=== PATIENT | male | born 1945 | race Caucasian/White ===

== ENCOUNTER 2019-09-24 08:31 | Observation (INO) | payer MEDICARE, SELFPAY ==
[2019-09-07 10:19] VITALS: BP 140/80; PULSE 54; RESP 16; TEMP 36.8; O2SAT 96; BMI 25.4
--- NOTE | 2019-09-07 10:41 | SDCEKG_ITS ---
Test Reason : Blood Pressure : / mmHG Vent. Rate : 045 BPM Atrial Rate : 045 BPM P-R Int : 182 ms QRS Dur : 096 ms QT Int : 470 ms P-R-T Axes : 060 -25 045 degrees QTc Int : 406 ms Marked sinus bradycardia Abnormal ECG Confirmed by CHELLE ENGLISH, LISA ([id number]), digital editor LUIS MONROY ([id number]) on 09/10/2019 9:46:56 AM Referred By: Ricci Hauser Confirmed By:LISA CORBETT MD
[2019-09-07 11:04] LABS: Hematocrit 40.3 % (40-54); Mean Corp Hgb Conc 34.7 g/dL (32-36); Mean Corpuscular Hgb 32.2 pg (27.0-32.0); Mean Corpuscular Volume 92.6 fL (80-94); Mean Platelet Vol. 9.2 fl (6.2-12.0); Platelet Count 200 K/mm3 (150-450); RBC Distribution Width CV 13.3 % (11.6-14.6); RBC Distribution Width SD 45.8 fl (35.1-43.9); Red Blood Count 4.35 M/mm3 (4.6-6.2); White Blood Count 5.9 K/mm3 (4.4-11.0)
[2019-09-07 11:27] LABS: Anion Gap 5 (5-15); BUN 24 mg/dL (7-18); BUN/Creat Ratio 25.1 RATIO (10-20); Calcium,Total 9.3 mg/dL (8.5-10.1); Chloride 105 mmol/L (98-107); Creatinine, Serum 0.96 mg/dL (0.70-1.30); EST Glomerular Filtration Rate 82 mL/min (>60); Est Glom Filt Rate - Afr Amer 99 mL/min (>60); Estimated Creatinine Clearance 64.07 ml/min; Glucose 101 mg/dL (74-106); Potassium 3.8 mmol/L (3.5-5.1); Sodium Level 140 mmol/L (136-145)
[2019-09-24] VITALS (13 sets, daily range): BP systolic 112–150; BP diastolic 61–83; PULSE 57–87; RESP 15–18; TEMP 36.3–36.9; O2SAT 96–100; BMI 24.6
[2019-09-24] MEDS: Acetaminophen 500 MG Tablet 1000 MG PO ×3 (07:42→21:20)
[2019-09-24] MEDS: Gabapentin 600 MG Tablet PO (07:43)
[2019-09-24] MEDS: Lactated Ringers 1,000 ML 999 ML IV (07:44)
--- NOTE | 2019-09-24 07:55 | HIP_PTH ---
PATIENT: PATRICK CAMARENA LOC: MS3 U#:[id number] AGE/SX: 74/M ROOM: PA323 RE09/24/[address]: Dr. Ricci Hauser DO : 1945 BED: 1 DIS: 09/25/2019 SPEC #: [id number] RECD: 09/24/19 10:19 STATUS: DELMI RECecilio #: [id number] JOSE C: 09/24/19 07:[address]: Ricci Hauser DEPT: SURGICAL PATHOLOGY RECD BY: Phillip Natarajan ENTERED: 09/24/19 10:48 SP TYPE: TOTAL HIP OTHR DR: Dr. Tere Martinez, Tissues: Hip, NOS Procedures: Decalcification bone/plaque Surgery Specimen Level IV HEADER OPERATION: Total hip replacement PRE-OP DIAGNOSIS: Unilateral primary osteoarthritis left hip TISSUE SUBMITTED: Bone and tissue left hip MICROSCOPIC DIAGNOSIS Bone and soft tissue of left hip, total hip resection: Severe degenerative joint disease. AM:yefri 09/27/19 MICROSCOPIC DESCRIPTION Slides are reviewed. GROSS DESCRIPTION Received is one container labeled with the patient's name and designated bone and soft tissue hip, left. The specimen consists of a senior femoral head with portion of femoral neck. The femoral head measures 5.5 x 5 x 4.5 cm and the femoral neck measures up to 2 cm in length. The articular surface displays prominent osteophyte formation, eburnation and bone erosion. Also present in the specimen container are multiple irregular fragments of bone reamings and pink-yellow soft tissue measuring in aggregate 12 x 11 x 3 cm. Advertising Copy Writer sections are submitted in two cassettes as follows: 1 - soft tissue, 2 - bone after decalcification. / SJ:yefri 09/24/19 TC:5 [facility]: [id number], [id number]
[2019-09-24 08:11] LABS: Bedside Glucose 104 mg/dL (70-110)
[2019-09-24] MEDS: Cefazolin 2 GM in 0.9% Normal Saline 100 ML IV (08:29)
--- NOTE | 2019-09-24 10:10 | OP.PCM_ITS ---
Report of Operation Date of Procedure: 09/24/19 Pre-Operative Diagnosis: OA left hip Post-Operative Diagnosis: same Surgery/Procedure Performed:: Left THR Description of Surgical Findings:: Primary Surgeon/Physician: Ricci Hauser senior assistant manager: Garcia Novak PA-C senior assistant manager: Pre-Operative Diagnosis: OA left hip Post-Operative Diagnosis: same Surgery/Procedure Performed: Left THR Estimated Blood Loss: 75cc Specimen's Removed: femoral head Type of Anesthesia: spinal ASA Class: ASA3 Severe Disease Implants: [Claxton Trident Tritanium size 52 mm cup, +0 MDM liner, size 4 Accolade II femoral stem ] Surgical Indications: Patient has severe end-stage osteoarthritic changes in the [left ] hip. They have failed conservative measures including activity modification, anti-inflammatories, use of assistive devices. This to the point where the pain affects their ability to enjoy life and complete activities of daily living without discomfort. Patient has elected to undergo the above procedure Procedure Description: The patient was greeted in the preoperative area the [left ] hip was marked with surgical marker preoperative antibiotics administered. The patient was then taken to or suite in stable condition. Preoperative tranexamic acid was also utilized. Once the patient was placed in the supine position on the operating room table and once adequate anesthesia was obtained they were then placed in the lateral decubitus position with the surgical hip facing the field. All bony prominences were well-padded. A commercial hip position was utilized. The appropriate extremity was then prepped and draped in usual sterile fashion. Ioban was placed on the skin. Surgical timeout was performed and surgery was commenced. A standard posterior approach to the hip was then performed. Incision was planned and carried out with a #10 blade scalpel. Dissection was then carried length of the incision to the IT band which was split proximally and distally. A Charnley retractor was then placed for soft tissue retraction exposing the piriformis. A standard posterior capsulotomy was performed. Severe eburnation of bone was noted and periarticular osteophytes were identified consistent with severe end-stage osteoarthritis. A femoral neck osteotomy guide was used to chato the proximal femur. A femoral osteotomy was then created approximately 1 fingerbreadth above the lesser trochanter. This was measured and placed on the back table. Once this was complete acetabular retractors were placed anteriorly and posteriorly. Labrum was then removed from the acetabulum exposing the entire cup of the acetabulum. Sequential reaming was then commenced and the acetabulum was medialized and sequentially widened in order to accommodate appropriate size cup. The acetabular cup was then impacted into position to the appropriate depth referencing approximately 30? anteversion and 45? of inclination. Excellent purchase was obtained. An appropriate size MDM liner was then placed. Attention was then turned to the femoral preparation. The hip was placed in the 90/90 position and a lateralizing box osteotome was utilized. Femoral starting awl was used followed by sequential broaching to the appropriate size. Excellent purchase was obtained with the stem no stem subsidence and excellent rotational stability was confirmed. A calcar reamer was then used in the trial head neck was placed on the broach. The hip was then located and taken through full range of motion flexion internal and external rotation as well as extension. Excellent stability was noted no impingement was identified of the components and leg lengths appear to be appropriate. The hip was at this point dislocated and the trial femoral components were removed. The final femoral stem was then implanted and impacted to the appropriate depth. Again excellent purchase was obtained no stem subsidence or rotational instability was noted. The hip was once again trialed and confirmation of leg length and stability was performed. Soft tissue tension also appeared to be appropriate. At this point the hip was redislocated and the trunnion was cleaned and dried meticulously in the appropriate size MDM femoral head was placed on the clean dry trunnion using a 12/14 Dumont taper. The hip was once again relocated and again taken through full range of motion. I did inject a cocktail of postoperative pain medication in the deep and superficial tissues. Copious irrigation was performed. Anatomic closure of the piriformis tendon was performed through drill holes in the greater trochanter. A #1 Vicryl 0 Vicryl was utilized in subcutaneous tissue and surgical olivier were placed in the skin. A well-padded nonadherent dressing was applied. Patient was taken to PACU in stable condition. No complications were identified. Will follow standard postop protocol for total hip arthroplasty. My circulation assistant played a vital role in the procedure beginning with positioning, holding retraction of soft tissues, positioning the leg to optimize visualization during the procedure and assisting with wound closure. senior assistant manager: Garcia Novak Type of Anesthesia:: Spinal Anesthesiologist: Savage Giang Estimated Blood Loss (mL): 75 cc - Admit VTE Documentation VTE Present on Admission: No VTE Mechan Device Prophylaxis: SCD's, Thigh High ANALILIA Hose VTE Pharm Prophylaxis ordered?: Yes
--- NOTE | 2019-09-24 10:15 | RAD_ITS ---
STUDY: X-RAY - PELVIS AND LEFT HIP REASON FOR EXAM: Male, 74 years old. POST OP HIP TECHNIQUE: 2 views of the pelvis and hip. COMPARISON: None. FINDINGS: The patient is status post left total hip replacement. There is good alignment. Postoperative soft tissue changes. RAD/Hip Min 2 Views (Portable) IMPRESSION: Status post left hip replacement. There is good alignment. Postoperative soft tissue swelling. Electronically Signed: Javier Mccall, at 13:06 EDT , Service support ,
[2019-09-24] MEDS: Lactated Ringers 1,000 ML 75 ML IV ×2 (10:16→13:27)
[2019-09-24 10:57] LABS: Hematocrit 36.9 % (40-54); Hemoglobin 12.4 g/dL (13.0-16.5); Mean Corp Hgb Conc 33.6 g/dL (32-36); Mean Corpuscular Hgb 31.6 pg (27.0-32.0); Mean Corpuscular Volume 94.1 fL (80-94); Mean Platelet Vol. 9.6 fl (6.2-12.0); Platelet Count 173 K/mm3 (150-450); RBC Distribution Width CV 13.6 % (11.6-14.6); RBC Distribution Width SD 46.5 fl (35.1-43.9); Red Blood Count 3.92 M/mm3 (4.6-6.2); White Blood Count 6.9 K/mm3 (4.4-11.0)
[2019-09-24 11:12] LABS: Anion Gap 5 (5-15); BUN 14 mg/dL (7-18); BUN/Creat Ratio 16.3 RATIO (10-20); Calcium,Total 8.6 mg/dL (8.5-10.1); Chloride 109 mmol/L (98-107); Creatinine, Serum 0.86 mg/dL (0.70-1.30); EST Glomerular Filtration Rate 93 mL/min (>60); Est Glom Filt Rate - Afr Amer 113 mL/min (>60); Estimated Creatinine Clearance 71.52 ml/min; Glucose 110 mg/dL (74-106); Potassium 3.7 mmol/L (3.5-5.1); Sodium Level 142 mmol/L (136-145)
[2019-09-24] MEDS: Cefazolin 1 GM/50 ML BAG IV ×2 (13:50→21:19)
[2019-09-24] MEDS: Senna/Docusate Sodium 1 Tablet 2 TABLET PO ×2 (13:50→21:21)
[2019-09-24] MEDS: hydroCHLOROthiazide 12.5mg 12.5 MG PO (13:50)
[2019-09-24] MEDS: Aspirin 81 MG TAB.CHEW PO (16:38)
[2019-09-24] MEDS: oxyCODONE 5 MG Tablet PO (22:00)
[2019-09-25 01:05] VITALS: BP 132/74; PULSE 68; RESP 16; TEMP 36.8; O2SAT 97
[2019-09-25 05:05] VITALS: BP 134/70; PULSE 60; RESP 16; TEMP 36.9; O2SAT 98
[2019-09-25] MEDS: Acetaminophen 500 MG Tablet 1000 MG PO ×2 (05:06→13:48)
[2019-09-25] MEDS: Cefazolin 1 GM/50 ML BAG IV (05:07)
[2019-09-25] MEDS: 0.9% Saline Lock 10 ML Syringe IV (06:23)
[2019-09-25 07:34] LABS: Hematocrit 35.9 % (40-54); Hemoglobin 12.2 g/dL (13.0-16.5); Mean Corpuscular Hgb 31.7 pg (27.0-32.0); Mean Corpuscular Volume 93.2 fL (80-94); Mean Platelet Vol. 9.7 fl (6.2-12.0); Platelet Count 177 K/mm3 (150-450); RBC Distribution Width CV 13.3 % (11.6-14.6); RBC Distribution Width SD 45.8 fl (35.1-43.9); Red Blood Count 3.85 M/mm3 (4.6-6.2); White Blood Count 9.3 K/mm3 (4.4-11.0)
[2019-09-25 07:49] LABS: Anion Gap 5 (5-15); BUN 14 mg/dL (7-18); BUN/Creat Ratio 17.3 RATIO (10-20); Calcium,Total 8.4 mg/dL (8.5-10.1); Chloride 103 mmol/L (98-107); Creatinine, Serum 0.81 mg/dL (0.70-1.30); EST Glomerular Filtration Rate 100 mL/min (>60); Est Glom Filt Rate - Afr Amer 120 mL/min (>60); Estimated Creatinine Clearance 75.94 ml/min; Glucose 117 mg/dL (74-106); Potassium 3.6 mmol/L (3.5-5.1); Sodium Level 136 mmol/L (136-145)
[2019-09-25] MEDS: oxyCODONE 5 MG Tablet PO (08:17)
--- NOTE | 2019-09-25 08:17 | PCM.PN.ORT ---
Subjective: Patient sitting at bedside eating breakfast. Patient states pain is very well managed. Patient denies chest pain, shortness breath, calf pain, nausea vomiting. Patient has no other complaints is ready to go home. Objective: Postop right total hip arthroplasty Plan 1. Continue all pain medications as prescribed 2. Continue physical therapy weight-bear as tolerated with walker 3. Aspirin 81 mg 1 p.o. every 12 hours x30 days for postop DVT prophylaxis 4. Encourage incentive spirometry 5. Discharge home today after p.m. therapy 6. We will continue physical therapy at [facility] [place] - Physical Exam Vitals/I&O's: Vital Signs Temp Pulse Resp BP Pulse Ox 98.4 F 60 16 134/70 H 98 09/25/19 05:05 09/25/19 05:05 09/25/19 05:05 09/25/19 05:05 09/25/19 05:05 Oxygen Flow Rate (L/min) 6 Oxygen Delivery Method Room Air Weight: 71.4 kg Body Mass Index (BMI) 24.6 Intake and Output for Last 24 Hours 09/23/19 09/24/19 09/25/19 23:59 23:59 23:59 Intake Total 2658.75 / 2658.75 560.00 / 560.00 Output Total 1550 / 1550 450 / 450 Balance 1108.75 / 1108.75 110.00 / 110.00 Laboratory Results 09/24/19 10:45: WBC 6.9, RBC 3.92 L, Hgb 12.4 L, Hct 36.9 L, MCV 94.1 H, MCH 31.6, MCHC 33.6, RDW Std Deviation 46.5 H, RDW Coeff of Raghavendra 13.6, Plt Count 173, MPV 9.6 09/24/19 10:45: Sodium 142, Potassium 3.7, Chloride 109 H, Carbon Dioxide 28.0, Anion Gap 5, BUN 14, Creatinine 0.86, Estim Creat Clear Calc 71.52, Est GFR (MDRD) Af Amer 113, Est GFR (MDRD) Non-Af 93, BUN/Creatinine Ratio 16.3, Glucose 110 H, Calcium 8.6 09/25/19 07:03: WBC 9.3, RBC 3.85 L, Hgb 12.2 L, Hct 35.9 L, MCV 93.2, MCH 31.7, MCHC 34.0, RDW Std Deviation 45.8 H, RDW Coeff of Raghavendra 13.3, Plt Count 177, MPV 9.7 09/25/19 07:03: Sodium 136, Potassium 3.6, Chloride 103, Carbon Dioxide 28.0, Anion Gap 5, BUN 14, Creatinine 0.81, Estim Creat Clear Calc 75.94, Est GFR (MDRD) Af Amer 120, Est GFR (MDRD) Non-Af 100, BUN/Creatinine Ratio 17.3, Glucose 117 H, Calcium 8.4 L Current Medications Acetaminophen (Tylenol) 1,000 mg PO Q8 [facility] Last Admin: 09/25/19 05:06 Dose: 1,000 mg Documented by: Aspirin (Aspirin, Baby) 81 mg PO BIDCM [facility] Last Admin: 09/24/19 16:38 Dose: 81 mg Documented by: Doxazosin Mesylate (Cardura) 2 mg PO DAILY [facility] Last Admin: 09/24/19 13:45 Dose: Not Given Documented by: Hydrochlorothiazide () 12.5 mg PO DAILY [facility] Last Admin: 09/24/19 13:50 Dose: 12.5 mg Documented by: Cefazolin Sodium () 1 gm in 50 mls @ 100 mls/hr IV Q8 [facility] Last Infusion: 09/25/19 05:37 Dose: Infused Documented by: Sodium Chloride () 250 mls @ 15 mls/hr IV .[id number] PRN PRN Reason: Saline Flush Sodium Chloride () 250 mls @ 15 mls/hr IV .[id number] PRN PRN Reason: Additional IVPB Infusion Influenza Virus Vaccine Quadrival (Flucelvax /Fluzone ) 0.5 ml IM .ONCE ONE Stop: 09/25/19 10:01 Insulin Human Lispro (Humalog Kwikpen (Bkc)) 1 - 6 unit SC Q4H PRN PRN; Protocol PRN Reason: BG>/= 180, SEE PROTOCOL Ondansetron HCl (Zofran) 4 mg IV Q8H PRN PRN PRN Reason: NAUSEA Oxycodone HCl (Oxyir) 5 - 10 mg PO Q4H PRN PRN PRN Reason: Pain Score 4-10/10 Last Admin: 09/24/19 22:00 Dose: 5 mg Documented by: Promethazine HCl (Phenergan) 12.5 mg IM Q6H PRN PRN; Protocol PRN Reason: NAUSEA/VOMITING Senna/Docusate Sodium (Senokot-S, Harmony-Colace) 2 tablet PO BID [facility] Last Admin: 09/24/19 21:21 Dose: 2 tablet Documented by: Sodium Chloride () 10 - 40 ml IV UD PRN PRN Reason: SALINE FLUSH Last Admin: 09/25/19 06:23 Dose: 10 ml Documented by: Medical Necessity - Tobacco Use Smoking Status: Never smoker Tobacco Use: Non-smoker
--- NOTE | 2019-09-25 08:19 | PCM.DC.THR ---
Discharge Diet: No Restrictions Discharge Activity: May Not Drive, May Shower, Use Walker May shower in (days): 2 - only if incision is dry and without drainage. Do NOT soak/submerge in tub/pool/mckeon/stream/hot tub. May resume sexual activity in: No Restrictions Ice area for (Minutes): 20 - every hour while awake Weight Bearing Status: Weight bearing as tolerated Lifting Restrictions: 20 pounds Elevate: Operative Extremity Call your doctor if your incision/area has: Continuous Slow Oozing, Sudden Increased Bleeding, Increased Pain/ Swelling, Increased Redness, Foul Smelling Discharge Call your doctor if you observe: Fever of 101 or Higher, Inability to urinate, Inability to have a bowel movement, Shortness of breath, Fainting spells, Chest pain, Increased palpitations (irregular heartbeat), Calf discomfort, Uncontrolled pain Change Dressing in (Days):: 0 - Change daily and as needed. Remove Dressing in (days):: 8 Cleanse incision/area with: Soap & Water Allergies/Adverse Reactions: Allergies No Known Allergies Allergy (Verified 09/24/19 07:30) Medications to take at Discharge Doxazosin Mesylate 2 mg PO DAILY 09/07/19 Hydrochlorothiazide 12.5 mg PO DAILY 09/07/19 Meloxicam 15 mg PO DAILY 09/07/19 Acetaminophen [Tylenol] 1,000 mg PO Q8 #90 tab 09/25/19 Aspirin [Aspirin, Baby] 81 mg PO BIDCM #60 tab.chew 09/25/19 Oxycodone [Oxyir] 5 - 10 mg PO Q4H PRN PRN 7 Days #84 tab 09/25/19 The following prescriptions were given: Aspirin [Aspirin, Baby] 81 mg PO BIDCM #60 tab.chew Transmission Status: Pending to [facility] Oxycodone [Oxyir] 5 - 10 mg PO Q4H PRN PRN 7 Days #84 tab PRN Reason: Pain Score 4-10/10 Transmission Status: Sent to [facility] Acetaminophen [Tylenol] 1,000 mg PO Q8 #90 tab Transmission Status: Pending to [facility] Primary Care Physician: Tere Martinez DO [Primary Care Provider] - Test Results: Test results from this visit will be discussed in further detail at your follow-up appointment, if applicable. Please Follow Up With: Garcia Novak PA-C When: as scheduled (see pink sheet)
[2019-09-25 10:00] VITALS: BP 148/71; PULSE 70; RESP 18; TEMP 37.2; O2SAT 97
--- NOTE | 2019-09-25 10:10 | CASEMGMT ---
MARY ELLEN MARQUIS Face to Face with patient for initial transition planning/care coordination assessment. MARY ELLEN MARQUIS introduced self and role at [facility]. Patient lying in bed, alert and oriented. Patient willing to participate in assessment and is able to answer all questions appropriately. Care providers, pharmacy, and demographics verified. Patient wishes to discharge home and is setup with outpatient therapy at [facility]. Patient states he has no further needs or concerns at this time. CM to follow for discharge planning needs that may arise. PCP: Michelle Specialists: narda Hauser Pharmacy: [facility] Insurance: [employer] Prescription Benefit:yes Living Will/HPOA: yes, Alba Alvares LNOK: Living Arrangements: Patient lives with in 1 story home with 1 step and grab bar to enter the home. Patient is independent at home prior to surgery. Transportation: DME/HHC: Patient has shower chair, raised toilet seat, cane, walker at home. Patient is setup for outpatient therapy at [facility] for Tuesday. MARY ELLEN MARQUIS instructed patient that should outpatient therapy be cancelled to follow-up with Dr. Hauser for further instructions. Disposition Plan: Patient to discharge home with outpatient therapy, family support, and follow-up plans in place. Tawanna PIZANO, RN, CM
[2019-09-25] MEDS: Aspirin 81 MG TAB.CHEW PO (10:18)
[2019-09-25] MEDS: Senna/Docusate Sodium 1 Tablet 2 TABLET PO (10:18)
[2019-09-25] MEDS: hydroCHLOROthiazide 12.5mg 12.5 MG PO (10:18)
[2019-09-25] MEDS: Doxazosin 1 MG Tablet 2 MG PO (10:18)
[2019-09-25 13:57] VITALS: BP 145/67; PULSE 77; RESP 16; TEMP 37.1; O2SAT 98
== END 2019-09-25 14:02 | disposition home or self-care (01) ==
LOC: MS3 09:01 → SDC 09:01 → MS3 09:01
PROVIDERS: Admitting Provider Orthopaedic Surgery; PCP Family Medicine; Referring Provider Orthopaedic Surgery; Visit Provider Orthopaedic Surgery
PROC: 0SRB0JZ Replacement of Left Hip Joint with Synthetic Substitute, Open Approach (ICD-10-PCS; CPT 27130; principal; 2019-09-24 07:30)
DX: M16.12 Unilateral primary osteoarthritis, left hip (principal); R94.31 Abnormal electrocardiogram [ECG] [EKG]; R00.1 Bradycardia, unspecified; Z79.899 Other long term (current) drug therapy; I10 Essential (primary) hypertension
CPT/HCPCS: 01214; 27130; 36415; 73502; 80048; 82962; 85027; 87081; 88305; 88311; 93005; 96361; 96365; 96366; 97110; 97161; 97166; 97530; 97535; 99218; 99251; C1776; J7120; A4216; G0378; G0379; G0463